=== PATIENT | male | born 1930 | race Caucasian/White ===

== ENCOUNTER 2016-11-21 16:38 | Inpatient (IN) | payer OTHER ==
--- NOTE | 2016-11-21 16:46 | EDPHY ---
H & P Time Seen by Provider: 11/21/16 16:43 HPI/ROS: CHIEF COMPLAINT: Weakness, dizzy HISTORY OF PRESENT ILLNESS: Patient is an 87-year-old male with a history of atrial fibrillation, CHF, anemia and AAA who presents emergency department with weakness and dizziness. Patient states he woke this morning feeling more fatigued than normal. He reports feeling unsteady. He needed to use his 's walker to get around the house. He normally doesn't need any aid to ambulate. Patient denies focal weakness or numbness. No headache. Patient has no chest pain. No shortness of breath. Mild nonproductive cough. No nausea vomiting. No abdominal pain. Per report the patient may have taking his 's medications last evening instead of his. REVIEW OF SYSTEMS: My complete review of systems is negative except as mentioned in the HPI. Past Medical/Surgical History: Includes atrial fibrillation, CHF, AAA, anemia Social history: Patient does not smoke use alcohol. The patient is . Physical Exam: Vitals noted GENERAL: Well-appearing, in no acute distress, alert. HEENT: Eyes normal to inspection, normal pharynx, no signs of dehydration. NECK: No thyromegaly, no lymphadenopathy, supple. RESPIRATORY: Clear to auscultation bilaterally, no rales, rhonchi or wheezing. CVS: Regular rate and rhythm, no rubs, murmurs, or gallops. ABDOMEN: Soft, nontender, nondistended, no organomegaly. BACK: Normal to inspection, no CVA tenderness. SKIN: Normal color, no rash, warm, dry. No pallor. Multiple skin plaque lesions on his face and back. EXTREMITIES: No pedal edema, no calf tenderness, no Homans sign or cords, no joint swelling. NEURO/PSYCH: Higher functions: Alert and Oriented x3. Normal speech and cognition. Normal mood and affect. Cranial nerves: Normal as tested. Cerebellar: Normal as tested. Good finger to nose, good [id number], normal gait. Peripheral exam: Normal motor exam. Normal sensation. Normal reflexes. Constitutional: Initial Vital Signs Temperature (C) 36.4 C 11/21/16 16:40 Heart Rate 92 11/21/16 16:40 Respiratory Rate 16 11/21/16 16:40 Blood Pressure 117/83 H 11/21/16 16:40 O2 Sat (%) 96 11/21/16 16:40 O2 Delivery Mode Room Air Allergies/Adverse Reactions: amoxicillin trihydrate [From Augmentin] Allergy (Verified 09/28/15 05:37) potassium clavulanate [From Augmentin] Allergy (Verified 09/28/15 05:37) Home Medications: Medication Instructions Recorded Acetamn/Diphenhydramine 500/25 1 each PO HS PRN 04/09/12 [Tylenol PM (RX)] Aspirin EC [Aspirin EC 81 mg (OTC)] 81 mg PO DAILY 04/09/12 Calcium Carb W/Vit D [Calcium Carb 500 mg PO BID 04/09/12 W/Vit D 500/200 (OTC)] Carvedilol [Coreg] 25 mg PO BIDMEAL 04/09/12 Furosemide [Lasix 40 MG (RX)] 20 mg PO DAILY 04/09/12 Levothyroxine [Synthroid 100 mcg 100 mcg PO DAILY06 04/09/12 (RX)] Losartan Potassium [Cozaar] 100 mg PO DAILY 04/09/12 Omeprazole [Prilosec 20 mg] 20 mg PO DAILY@0730 04/09/12 Sennosides/Docusate Sodium 1 each PO DAILY 04/09/12 [Senokot-S Tablet] Spironolactone [Aldactone 25 MG 25 mg PO DAILY 04/09/12 (RX)] Tamsulosin HCl [Flomax 0.4 MG (RX)] 0.4 mg PO DAILY8 04/09/12 Warfarin Sodium [Coumadin 2.5MG 5 mg PO DAILY16 04/09/12 (RX)] Famotidine [Pepcid 20 MG (OTC)] 20 mg PO DAILY #10 tab 07/30/12 Ondansetron Odt [Zofran Odt] 4 mg PO Q4PRN PRN #8 tab 01/16/14 Carvedilol [Coreg] 12.5 mg PO BIDMEAL 11/21/16 Medical Decision Making - Diagnostics Imaging Results: Imaging Impressions Chest X-Ray 11/21/16 16:47 Impression: Suspect acute CHF with pulmonary edema. Head CT 11/21/16 16:47 Impression: 1. Historically remote, small left parietal cortical infarction. 2. Diffuse cortical atrophy. I telephoned results to Dr. Polly Grove at 1715 hours. ED Course/Re-evaluation: In the emergency department I met EMS on arrival. I took report from the master control technician. The patient's glucose was normal. Laboratory studies, head CT, EKG and chest x-ray were ordered. Patient was given aspirin 324 mg orally. I am aware that he has a history of a AAA. Patient was given meclizine 25 mg orally for his dizziness. I reviewed the patient's 's medications that the patient potentially took: Gabapentin, valsartan, donepezil, atorvastin, prilosec, calcitonin EKG: Atrial fibrillation with V paced complexes. I reviewed the patient's laboratory studies. His CBC was unremarkable. Normal white count and hematocrit. Patient's chemistry panel was notable for an elevated creatinine of 2.0. I compared this with previous values which were also elevated and similar. Patient's BNP is 6000. He has had elevated BNP in the past. Chest x-ray: Please refer the dictated report. The patient has cardiomegaly with findings consistent with CHF. I discussed the results with the patient. I answered all of his questions. I discussed the case with Dr. Orlando. He recommended giving Lasix 80 mg IV. Differential Diagnosis: My differential includes but is not limited to ACS, acute MT, dysrhythmia, electrolyte abnormality, sugar abnormality, dissection, aneurysm, CVA, closed- head injury, medication error - Data Points Laboratory Results: Laboratory Results 11/21/16 17:07 11/21/16 17:07 11/21/16 11/21/16 11/21/16 17:07 17:07 17:07 WBC 8.63 10^3/uL 10^3/uL (3.80-9.50) RBC 4.86 10^6/uL 10^6/uL (4.40-6.38) Hgb 14.0 g/dL g/dL (13.7-17.5) Hct 43.7 % % (40.0-51.0) MCV 89.9 fL fL (81.5-99.8) MCH 28.8 pg pg (27.9-34.1) MCHC 32.0 g/dL L g/dL (32.4-36.7) RDW 15.4 % H % (11.5-15.2) Plt Count 241 10^3/uL 10^3/uL (150-400) MPV 10.3 fL fL (8.7-11.7) Neut % (Auto) 62.9 % % (39.3-74.2) Lymph % (Auto) 21.1 % % (15.0-45.0) Brule % (Auto) 10.7 % % (4.5-13.0) Eos % (Auto) 4.4 % % (0.6-7.6) Baso % (Auto) 0.6 % % (0.3-1.7) Nucleat RBC Rel Count 0.0 % % (0.0-0.2) Absolute Neuts (auto) 5.43 10^3/uL 10^3/uL (1.70-6.50) Absolute Lymphs (auto) 1.82 10^3/uL 10^3/uL (1.00-3.00) Absolute Monos (auto) 0.92 10^3/uL H 10^3/uL (0.30-0.80) Absolute Eos (auto) 0.38 10^3/uL 10^3/uL (0.03-0.40) Absolute Basos (auto) 0.05 10^3/uL 10^3/uL (0.02-0.10) Absolute Nucleated RBC 0.00 10^3/uL 10^3/uL (0-0.01) Immature Gran % 0.3 % % (0.0-1.1) Immature Gran # 0.03 10^3/uL 10^3/uL (0.00-0.10) PT 28.4 SEC H SEC (12.0-15.0) INR 2.63 H (0.83-1.16) APTT 43.4 SEC H SEC (23.0-38.0) Sodium 139 mEq/L mEq/L (134-144) Potassium 4.7 mEq/L mEq/L (3.5-5.2) Chloride 105 mEq/L mEq/L (97-110) Carbon Dioxide 20 mEq/l L mEq/l (22-31) Anion Gap 14 mEq/L mEq/L (8-16) BUN 32 mg/dL H mg/dL (7-23) Creatinine 2.0 mg/dL H mg/dL (0.7-1.3) Estimated GFR 32 Glucose 95 mg/dL mg/dL (70-100) Calcium 9.5 mg/dL mg/dL (8.5-10.4) Total Bilirubin 1.0 mg/dL mg/dL (0.1-1.4) Conjugated Bilirubin 0.5 mg/dL mg/dL (0.0-0.5) Unconjugated Bilirubin 0.5 mg/dL mg/dL (0.0-1.1) AST 20 IU/L IU/L (17-59) ALT 26 IU/L IU/L (21-72) Alkaline Phosphatase 107 IU/L IU/L (38-126) Troponin I 0.019 ng/mL ng/mL (0-0.034) NT-Pro-B Natriuret Pep 6110 pg/mL H pg/mL (0-450) Total Protein 7.3 g/dL g/dL (6.3-8.2) Albumin 3.9 g/dL g/dL (3.5-5.0) Medications Given: Discontinued Medications Aspirin (Aspirin) 324 mg PO EDNOW ONE Stop: 11/21/16 16:49 Last Admin: 11/21/16 17:12 Dose: 324 mg Meclizine HCl (Meclizine Hcl) 25 mg PO EDNOW ONE Stop: 11/21/16 16:49 Last Admin: 11/21/16 17:12 Dose: 25 mg Departure - Departure Disposition: [facility] Inpatient Acute Clinical Impression: CHF (congestive heart failure) Qualifiers: Congestive heart failure type: unspecified congestive heart failure type Congestive heart failure chronicity: acute Qualified Code(s): I50.9 - Heart failure, unspecified Condition: Good Referrals: MD MANDA [Other] - As per Instructions
[2016-11-21] MEDS ORDERED: ASPIRIN 81 MG CHEWABLE TAB PO ONE (16:48)
[2016-11-21] MEDS ORDERED: MECLIZINE HCL 25 MG TAB PO ONE (16:48)
--- NOTE | 2016-11-21 16:50 | CPEKG ---
Heart Rate: 69 RR Interval: 870 QRSD Interval: 192 QT Interval: 484 QTC Interval: 519 QRS Mendon: 167 T Wave [place]on: -3 EKG Severity - ABNORMAL ECG - EKG Impression: AFIB/FLUT AND V-PACED COMPLEXES EKG Impression: NONSPECIFIC INTRAVENTRICULAR CONDUCTION DELAY Electronically Signed By: Polly Grove 21-Nov-2016 23:17:21
[2016-11-21 17:11] LABS: % IMMATURE GRANULYOCYTES 0.3 % (0.0-1.1); ABSOLUTE IMMATURE GRANULOCYTES 0.03 10^3/uL (0.00-0.10); ADD DIFF? NO; ADD MORPH? NO; ADD SCAN? NO; ATYPICAL LYMPHOCYTE FLAG 0 (0-99); FRAGMENT RBC FLAG 0 (0-99); HEMATOCRIT 43.7 % (40.0-51.0); LEFT SHIFT FLG 0 (0-99); LIPEMIA HEMOLYSIS FLAG 80 (0-99); MEAN CELL HEMOGLOBIN 28.8 pg (27.9-34.1); MEAN CELL VOLUME 89.9 fL (81.5-99.8); MEAN PLATELET VOLUME 10.3 fL (8.7-11.7); PLATELET CLUMPS FLAG 10 (0-99); PLATELET COUNT 241 10^3/uL (150-400); RED BLOOD CELL COUNT 4.86 10^6/uL (4.40-6.38); RED CELL DISTRIBUTION WIDTH 15.4 % (11.5-15.2)
[2016-11-21 17:22] LABS: APTT 43.4 SEC (23.0-38.0); INR 2.63 (0.83-1.16); PROTIME(PATIENT) 28.4 SEC (12.0-15.0)
[2016-11-21 17:23] LABS: ALANINE AMINOTRANSFERASE 26 IU/L (21-72); ALBUMIN 3.9 g/dL (3.5-5.0); ALKALINE PHOSPHATASE 107 IU/L (38-126); ANION GAP 14 mEq/L (8-16); ASPARTATE AMINOTRANSFERASE 20 IU/L (17-59); BILIRUBIN-CONJUGATED 0.5 mg/dL (0.0-0.5); BILIRUBIN-UNCONJUGATED 0.5 mg/dL (0.0-1.1); CALCIUM 9.5 mg/dL (8.5-10.4); CARBON DIOXIDE 20 mEq/l (22-31); CHLORIDE 105 mEq/L (97-110); GLOMERULAR FILTRATION RATE 32; GLUCOSE 95 mg/dL (70-100); POTASSIUM 4.7 mEq/L (3.5-5.2); SODIUM 139 mEq/L (134-144); TOTAL PROTEIN 7.3 g/dL (6.3-8.2)
[2016-11-21 17:35] LABS: TROPONIN I 0.019 ng/mL (0-0.034)
[2016-11-21] MEDS ORDERED: FUROSEMIDE 40 MG/4 ML VIAL IVP ONE (19:32)
[2016-11-21] MEDS ORDERED: ONDANSETRON 4 MG/2 ML VIAL IVP PRN (19:51)
[2016-11-21] MEDS ORDERED: ONDANSETRON DISINTEGRATING 4 MG TAB PO PRN (19:51)
[2016-11-21] MEDS ORDERED: ACETAMINOPHEN 325 MG TAB PO PRN (19:51)
[2016-11-21] MEDS ORDERED: ACETAMN/DIPHENHYDRAMINE 500/25MG TAB PO PRN (19:54)
[2016-11-21] MEDS ORDERED: CALCIUM CARB W/VIT D 500 MG TAB PO SCH (21:00)
--- NOTE | 2016-11-21 21:51 | PDGENHP ---
History and Physical - Chief Complaint Acute fatigue - History of Present Illness primary care provider: [facility] Internal Medicine Primary risk control specialist: Dr. Delcid at [facility] HPI: 86-year-old male presents with acute fatigue characterized as generalized weakness with associated unsteady gait and onset of symptoms on the morning of presentation. Duration has been persistent thereafter. The patient reports that his unsteady gait was somewhat exacerbated by attempting to walk breakfast , somewhat alleviated by using his 's walker to steady himself. He reports that his urine output is normal compared to his baseline, twice today already, and that his oral intake of solids and liquids has been at his baseline. He denies any nausea vomiting or diarrhea. He denies any fevers chills or cough. He does report some shortness of breath which is exertional but seems to be alleviated by stopping and taking deep breaths. He denies any orthopnea. He has otherwise been taking all of his home medications and denies any chest pain. Patient accidentally took his 's home medications last night the patient is unable to tell me what they are right now. History Information - Allergies/Home Medication List Allergies/Adverse Reactions: amoxicillin trihydrate [From Augmentin] Allergy (Verified 09/28/15 05:37) potassium clavulanate [From Augmentin] Allergy (Verified 09/28/15 05:37) Home Medications: Omeprazole [Prilosec 20 mg] 20 mg PO DAILY06 04/09/12 [Last Taken 04/09/12] Tamsulosin HCl [Flomax 0.4 MG (RX)] 0.4 mg PO HS 04/09/12 [Last Taken 04/09/12] Warfarin Sodium [Coumadin 2.5MG (RX)] 2.5 mg PO DAILY16 04/09/12 [Last Taken 09/04] Calcitriol [Calcitriol (*)] 0.25 mcg PO DAILY 11/21/16 [Last Taken 11/21/16] Carvedilol [Coreg] 6.25 mg PO BIDMEAL 11/21/16 [Last Taken Unknown] Finasteride [Proscar 5 MG (*)] 5 mg PO DAILY 11/21/16 [Last Taken 11/21/16] Furosemide [Lasix 20 MG (*)] 20 mg PO DAILY 11/21/16 [Last Taken Unknown] Levothyroxine [Synthroid 88 mcg (*)] 88 mcg PO DAILY06 11/21/16 [Last Taken 08/04] Losartan Potassium [Cozaar 25 mg (*)] 12.5 mg PO DAILY 11/21/16 [Last Taken 08/04] Sodium Bicarbonate [Na Bicarb 650 MG (RX)] 1,300 mg PO DAILY 11/21/16 [Last Taken Unknown] I have personally reviewed and updated: family history, medical history, social history, surgical history - Past Medical History CHF ( Nonischemic cardiomyopathy with an ejection fraction of 10-15%), hypertension Additional medical history: chronic kidney disease stage 3 with baseline creatinine 1.7-1.9. 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 Hypothyroidism. COPD. Anemia of chronic kidney disease. Osteopenia. Thoracic aortic aneurysm. Nonsustained ventricular tachycardia. BPH. Gastric MALT - Surgical History Reports: appendectomy Additional surgical history: Parathyroidectomy. Thyroid lobectomy - Family History Additional family history: no recent sick family contacts - Social History Smoking Status: Former smoker Alcohol Use: Rarely Drug Use: None Additional social history: patient is reside in the [facility] Review of Systems ROS: 10pt was reviewed & negative except for what was stated in HPI & below Constitutional: Reports: weakness, other (fatigue) Physical Exam Temp Pulse Resp BP Pulse Ox 36.5 C 78 21 H 134/85 H 96 11/21/16 21:14 11/21/16 21:14 11/21/16 21:14 11/21/16 21:14 11/21/16 21:14 O2 (L/minute) 2 Constitutional: no apparent distress, not in pain, chronically ill appearing, No uncomfortable Eyes: PERRL, anicteric sclera, EOMI Ears, Nose, Mouth, Throat: other (tacky mucous membranes) Cardiovascular: systolic murmur (II/ at sternum), edema (trace in ankles bilat ), No irregularly irregular, No tachycardia, No bradycardia Respiratory: reduced air movement (bilat bases), inspiratory crackles, No expiratory wheeze, No bronchial breath sounds Gastrointestinal: normoactive bowel sounds, soft, non-tender abdomen, no palpable masses Genitourinary: no bladder fullness, no bladder tenderness Skin: warm, normal color, no rashes or abrasions, no fluctuance, no induration, No mottled Neurologic: AAOx3, sensation intact bilaterally, No weakness (motor 5/5 bilat LE ) Psychiatric: interacting appropriately, not anxious, not encephalopathic, thought process linear, other (fatigued but arousable) Lab Data & Imaging Review 11/21/16 17:07 11/21/16 17:07 WBC 8.63 10^3/uL (3.80-9.50) 11/21/16 17:07 RBC 4.86 10^6/uL (4.40-6.38) 11/21/16 17:07 Hgb 14.0 g/dL (13.7-17.5) 11/21/16 17:07 Hct 43.7 % (40.0-51.0) 11/21/16 17:07 MCV 89.9 fL (81.5-99.8) 11/21/16 17:07 MCH 28.8 pg (27.9-34.1) 11/21/16 17:07 MCHC 32.0 g/dL (32.4-36.7) L 11/21/16 17:07 RDW 15.4 % (11.5-15.2) H 11/21/16 17:07 Plt Count 241 10^3/uL (150-400) 11/21/16 17:07 MPV 10.3 fL (8.7-11.7) 11/21/16 17:07 Neut % (Auto) 62.9 % (39.3-74.2) 11/21/16 17:07 Lymph % (Auto) 21.1 % (15.0-45.0) 11/21/16 17:07 Robeson % (Auto) 10.7 % (4.5-13.0) 11/21/16 17:07 Eos % (Auto) 4.4 % (0.6-7.6) 11/21/16 17:07 Baso % (Auto) 0.6 % (0.3-1.7) 11/21/16 17:07 Nucleat RBC Rel Count 0.0 % (0.0-0.2) 11/21/16 17:07 Absolute Neuts (auto) 5.43 10^3/uL (1.70-6.50) 11/21/16 17:07 Absolute Lymphs (auto) 1.82 10^3/uL (1.00-3.00) 11/21/16 17:07 Absolute Monos (auto) 0.92 10^3/uL (0.30-0.80) H 11/21/16 17:07 Absolute Eos (auto) 0.38 10^3/uL (0.03-0.40) 11/21/16 17:07 Absolute Basos (auto) 0.05 10^3/uL (0.02-0.10) 11/21/16 17:07 Absolute Nucleated RBC 0.00 10^3/uL (0-0.01) 11/21/16 17:07 Immature Gran % 0.3 % (0.0-1.1) 11/21/16 17:07 Immature Gran # 0.03 10^3/uL (0.00-0.10) 11/21/16 17:07 PT 28.4 SEC (12.0-15.0) H 11/21/16 17:07 INR 2.63 (0.83-1.16) H 11/21/16 17:07 APTT 43.4 SEC (23.0-38.0) H 11/21/16 17:07 Sodium 139 mEq/L (134-144) 11/21/16 17:07 Potassium 4.7 mEq/L (3.5-5.2) 11/21/16 17:07 Chloride 105 mEq/L (97-110) 11/21/16 17:07 Carbon Dioxide 20 mEq/l (22-31) L 11/21/16 17:07 Anion Gap 14 mEq/L (8-16) 11/21/16 17:07 BUN 32 mg/dL (7-23) H 11/21/16 17:07 Creatinine 2.0 mg/dL (0.7-1.3) H 11/21/16 17:07 Estimated GFR 32 11/21/16 17:07 Glucose 95 mg/dL (70-100) 11/21/16 17:07 Calcium 9.5 mg/dL (8.5-10.4) 11/21/16 17:07 Total Bilirubin 1.0 mg/dL (0.1-1.4) 11/21/16 17:07 Conjugated Bilirubin 0.5 mg/dL (0.0-0.5) 11/21/16 17:07 Unconjugated Bilirubin 0.5 mg/dL (0.0-1.1) 11/21/16 17:07 AST 20 IU/L (17-59) 11/21/16 17:07 ALT 26 IU/L (21-72) 11/21/16 17:07 Alkaline Phosphatase 107 IU/L (38-126) 11/21/16 17:07 Troponin I 0.019 ng/mL (0-0.034) 11/21/16 17:07 NT-Pro-B Natriuret Pep 6110 pg/mL (0-450) H 11/21/16 17:07 Total Protein 7.3 g/dL (6.3-8.2) 11/21/16 17:07 Albumin 3.9 g/dL (3.5-5.0) 11/21/16 17:07 Visualized and Interpreted Chest x-ray results: Yes Chest X-Ray results: other ( pulmonary edema, cardiomegaly) Visualized and Interpreted EKG results: Yes EKG Interpretation: Positive for: other ( pace) Assessment & Plan Assessment: 86-year-old male presents with acute fatigue secondary to suspected acute systolic CHF exacerbation Plan: 1. Suspected acute CHF exacerbation. New problem this provider, further workup indicated. Evidenced by pulmonary edema on chest x-ray, elevated BNP of 6000, symptomatic fatigue and shortness of breath. Reviewed outside records which demonstrated last known ejection fraction 10-15% history and physical by Dr. Ambreen Dubois from 04/09/2012 -although patient's weight is 5 kg less than 1 year ago, it is unclear what his current dry weight is and will request outside records from [facility] cardiology, Dr. Delcid's office -discussed with Dr. Grove, we agreed to give the patient 1 dose 80 IV Lasix in the emergency department, gauge urine output response, monitor serum creatinine level and daily weights closely -Lasix 40 mg IV twice daily ordered to start tomorrow morning, adjust depending on urine output and serum creatinine level -get echocardiogram to determine current ejection fraction -monitor on telemetry to ensure no tachyarrhythmias exacerbating his issue 2. Acute kidney injury on chronic kidney disease stage 3. most likely secondary to renal hypoperfusion in the setting of poor cardiac output in the setting of severe cardiomyopathy and suspected CHF exacerbation -as noted above, monitor urine output and renal function closely in the setting of IV diuretic trial -if patient's serum creatinine level is increasing tomorrow, would recommend giving back volume and potentially consulting with renal 3. Fatigue. Acute, new problem this provider, further workup indicated. Most likely etiology is CHF exacerbation as outlined above, but given his history of parathyroid adenoma as well as secondary hyperparathyroidism and his underlying renal dysfunction, would recommend getting full electrolyte panel and also assessing for other causes -patient took all of his 's home medications on the evening prior to presentation but is currently unclear what these medications are -would recommend the family bring the 's medications in tomorrow that we have a better understanding of what was actually ingested -until Dr. Grove that the 's medications including DIO-inhibitor as well as another antihypertensive, but the patient is not presently hypotensive 4. Hypertension. Chronic, holding some of patient's home medications while actively diuresing Diet. Cardiac Prophylaxis. High risk, currently on Coumadin Code. Full per patient, his son Kalen is his MD POA Disposition. Anticipated discharge uncertain this time, anticipated length stay is greater than 48 hours warranting inpatient admission status for acute suspected CHF exacerbation in the setting of high risk comorbid acute kidney injury on chronic kidney disease stage 3, high medical complexity patient. Dr. Grove has contacted [facility] today and asked them whether they would like to repatriate the patient, they have declined and are permitting us to admit him as an inpatient at this time.
[2016-11-21 22:41] LABS: COLOR PALE YELLOW; LEUKOCYTE ESTERASE,URINE 2+ (NEGATIVE); NITRITE,URINE NEGATIVE (NEGATIVE)
[2016-11-21] MEDS: TAMSULOSIN HCL 0.4 MG CAP PO SCH (22:45)
[2016-11-21 22:55] LABS: WBC,URINE 25-50 /hpf (0-3)
[2016-11-22 04:27] LABS: % IMMATURE GRANULYOCYTES 0.3 % (0.0-1.1); ABSOLUTE IMMATURE GRANULOCYTES 0.03 10^3/uL (0.00-0.10); ADD DIFF? NO; ADD MORPH? NO; ADD SCAN? NO; ATYPICAL LYMPHOCYTE FLAG 0 (0-99); FRAGMENT RBC FLAG 0 (0-99); HEMATOCRIT 43.7 % (40.0-51.0); HEMOGLOBIN 14.2 g/dL (13.7-17.5); LEFT SHIFT FLG 0 (0-99); LIPEMIA HEMOLYSIS FLAG 80 (0-99); MEAN CELL HEMOGLOBIN 28.9 pg (27.9-34.1); MEAN CELL HEMOGLOBIN CONCENTR. 32.5 g/dL (32.4-36.7); MEAN PLATELET VOLUME 9.7 fL (8.7-11.7); PLATELET CLUMPS FLAG 10 (0-99); PLATELET COUNT 186 10^3/uL (150-400); RED BLOOD CELL COUNT 4.91 10^6/uL (4.40-6.38); RED CELL DISTRIBUTION WIDTH 15.3 % (11.5-15.2)
[2016-11-22 04:40] LABS: INR 2.55 (0.83-1.16); PROTIME(PATIENT) 27.7 SEC (12.0-15.0)
[2016-11-22 05:06] LABS: ALANINE AMINOTRANSFERASE 27 IU/L (21-72); ALBUMIN 3.7 g/dL (3.5-5.0); ALKALINE PHOSPHATASE 105 IU/L (38-126); ANION GAP 13 mEq/L (8-16); ASPARTATE AMINOTRANSFERASE 22 IU/L (17-59); CALCIUM 9.5 mg/dL (8.5-10.4); CARBON DIOXIDE 20 mEq/l (22-31); CHLORIDE 106 mEq/L (97-110); CREATININE 1.7 mg/dL (0.7-1.3); GLOMERULAR FILTRATION RATE 38; GLUCOSE 99 mg/dL (70-100); MAGNESIUM 1.7 mg/dL (1.6-2.3); POTASSIUM 3.8 mEq/L (3.5-5.2); SODIUM 139 mEq/L (134-144); TOTAL PROTEIN 7.2 g/dL (6.3-8.2)
[2016-11-22 05:17] LABS: TROPONIN I 0.023 ng/mL (0-0.034)
[2016-11-22] MEDS: LEVOTHYROXINE 88 MCG TAB PO SCH (05:41)
[2016-11-22] MEDS ORDERED: LEVOTHYROXINE 100 MCG TAB PO SCH (06:00)
[2016-11-22] MEDS ORDERED: LEVOTHYROXINE 88 MCG TAB PO SCH (06:00)
[2016-11-22] MEDS ORDERED: NON-FORMULARY NEW DRUG (Omeprazole [Prilosec 20 Mg] 20 MG) PO SCH (07:30)
[2016-11-22] MEDS ORDERED: NON-FORMULARY NEW DRUG (Carvedilol [Coreg] 12.5 MG) PO SCH (08:00)
[2016-11-22] MEDS ORDERED: CARVEDILOL 6.25 MG TAB PO SCH (08:00)
[2016-11-22] MEDS ORDERED: SENNOSIDES/DOCUSATE SODIUM TAB PO SCH (09:00)
[2016-11-22] MEDS ORDERED: SPIRONOLACTONE 25 MG TAB PO SCH (09:00)
[2016-11-22] MEDS ORDERED: ASPIRIN EC 81 MG TAB PO SCH (09:00)
[2016-11-22] MEDS ORDERED: CHOLECALCIFEROL VIT D3 1,000 UNITS TAB PO SCH (09:00)
[2016-11-22] MEDS ORDERED: NON-FORMULARY NEW DRUG (Silodosin [Rapaflo] 8 MG) PO SCH (09:00)
[2016-11-22] MEDS: PANTOPRAZOLE SODIUM 40 MG TAB PO SCH (09:39)
[2016-11-22] MEDS: CALCITRIOL 0.25 MCG CAP PO SCH (09:40)
[2016-11-22] MEDS: CARVEDILOL 6.25 MG TAB PO SCH ×2 (09:40→18:09)
[2016-11-22] MEDS: FINASTERIDE 5 MG TAB PO SCH (09:40)
[2016-11-22] MEDS: SODIUM BICARBONATE 650 MG TAB PO SCH (09:41)
[2016-11-22] MEDS: FUROSEMIDE 40 MG/4 ML VIAL IVP SCH ×2 (09:41→15:15)
--- NOTE | 2016-11-22 13:38 | ECHO ---
[id number] + + [address] : : [place] [address] : : [phone] + + Adult Echocardiographic Report + ------+ :Name: AKILA PANIAGUA RStudy Date: 11/22/2016 10:46 AM : : Hospital Admission Number: [id number] Locatio n: 219: :: 1930 Gender: Male Height: 71 in : :Age: 86 yrs Race: WH Weight: 180 lb : :Reason For Study: Eval EF : : BSA: 2.0 meters 2 : :History: Pacer : + ------+ MMode/2D Measurements \T\ Calculations LVIDd: 7.1 cm EDV(Teich): 266.2 ml Ao root diam: 4.7 cm LA dimension: 5.4 cm Normal Measurement Values: + + :LVIDd (3.5-5.7cm) IVSd (0.6-1.1cm) LVPWd (0.6-1.1cm) Aortic Root (2.0-3.7cm)Left Atrium (1.5-4.0cm): :LV Vol(d) (76-115ml) LV Vol(s) (29-48ml) Ejec Fraction (50-65%)PV Glenn (0.6- 1.2m/s) TV Glenn (0.4-1.0m/s) : :MV E Glenn (0.8-1.0m/s)MV A Glenn (0.3-1.0m/s)LVOT Glenn (0.7-1.2m/s) Asc Ao Glenn ( 0.9-1.8m/s) : + + Doppler Measurements \T\ Calculations MV E max glenn: 64.5 cm/sec Ao V2 max: 96.4 cm/sec MV A max glenn: 22.5 cm/sec Ao max P.7 mmHg MV E/A: 2.9 Left Ventricle The left ventricle is severely dilated. There is normal left ventricular wall thickness. Left ventricular systolic function is severely reduced. EF estimate is 15%. Right Ventricle The right ventricle is normal in size and function. There is a pacemaker lead in the right ventricle. Atria The left atrium is mildly dilated. Right atrial size is normal. The interatrial septum is intact with no evidence for an atrial septal defect. Mitral Valve Calcified mitral apparatus. There is no evidence of mitral valve prolapse. There is no mitral valve stenosis. There is mild mitral regurgitation. Tricuspid Valve Normal tricuspid valve. There is mild tricuspid regurgitation. Aortic Valve The aortic valve is trileaflet. The aortic valve opens well. Mild aortic calcification. There is no aortic stenosis. Trace aortic regurgitation. Pulmonic Valve The pulmonic valve is normal in structure and function. Mild pulmonic valvular regurgitation. Great Vessels The aortic root is normal size. Pericardium/Pleural There is no pericardial effusion. Conclusion A complete two-dimensional transthoracic echocardiogram was performed (2D, M-mode, Doppler and color flow Doppler). The left ventricle is severely dilated. Left ventricular systolic function is severely reduced. EF estimate is 15%. There is a pacemaker lead in the right ventricle. The left atrium is mildly dilated. Calcified mitral apparatus. There is mild mitral regurgitation. There is mild tricuspid regurgitation. Mild aortic calcification. Trace aortic regurgitation. Mild pulmonic valvular regurgitation. Final Reading Physician: Holden West MD electronically signed on 11/22/2016 01:36 PM Ordering Physician: Theron Orlando Performed By: Trina Coleman RDCS
--- NOTE | 2016-11-22 15:06 | HOSPPROG ---
Hospitalist Progress Note Assessment/Plan: 86-year-old with a history of nonischemic cardiomyopathy followed at [facility]. He has had a pacemaker placed for sick sinus syndrome. His last echo at [facility] was done in October of 2015 which showed an EF of 30-40%. He has a Biotronik pacemaker. Mr. Cadena was admitted with acute onset of weakness and shortness of breath and evidence of congestive heart failure on his chest x-ray. # acute systolic congestive heart failure. Patient has a nonischemic cardiomyopathy, last known EF was 30-40% currently 15% by echo. He is feeling much better today however it is concerning about the mid significant drop in EF * Continue diuresis * Pacemaker interrogation with Biotronik * Cardiology consult in the morning question consider repeat limited echo after diuresis. # atrial fibrillation. Currently anticoagulated with Coumadin and rate controlled. # history of hypertension, blood pressure currently low likely secondary to his congestive heart failure. Will follow closely # Chronic Kidney disease. Creatinine 1.6 last month. Will continue to follow. # BPH: on finasteride. # Hypothyroidism Subjective: Patient new to me, chart reviewed. Discussed patient with [facility] physician. Patient feels much better today although unclear why he had sudden onset of heart failure with significant decreased EF. Still fatigued and short of breath but improved Objective: Vital Signs Temp Pulse Resp BP Pulse Ox 36.4 C 75 15 82/57 L 95 11/22/16 14:46 11/22/16 14:46 11/22/16 14:46 11/22/16 14:46 11/22/16 14:46 Laboratory Results 11/22/16 04:13 11/22/16 04:13 11/21/16 11/22/16 11/23/16 05:59 05:59 05:59 Intake Total 200 375 Output Total 2350 1000 Balance -2150 -625 PT 27.7 SEC (12.0-15.0) H 11/22/16 04:13 INR 2.55 (0.83-1.16) H 11/22/16 04:13 - Physical Exam Constitutional: no apparent distress, appears nourished, not in pain Eyes: PERRL, EOMI Ears, Nose, Mouth, Throat: moist mucous membranes, ears appear normal Cardiovascular: regular rate and rhythym, systolic murmur, edema (Trace) Respiratory: no respiratory distress, reduced air movement, inspiratory crackles (Basis) Gastrointestinal: normoactive bowel sounds, soft, non-tender abdomen Genitourinary: no bladder fullness Skin: warm Musculoskeletal: no joint effusions Neurologic: AAOx3, No facial droop Psychiatric: interacting appropriately, not anxious ICD10 Worksheet Patient Problems: Problems Problem Status Onset CHF (congestive heart failure) Acute
[2016-11-22] MEDS: WARFARIN SODIUM 2.5 MG TAB PO SCH (15:13)
[2016-11-22] MEDS ORDERED: FUROSEMIDE 40 MG/4 ML VIAL IVP SCH (15:18)
[2016-11-22] MEDS: TAMSULOSIN HCL 0.4 MG CAP PO SCH (20:29)
[2016-11-23] MEDS: LEVOTHYROXINE 88 MCG TAB PO SCH (05:59)
[2016-11-23 06:33] LABS: INR 2.22 (0.83-1.16); PROTIME(PATIENT) 24.8 SEC (12.0-15.0)
[2016-11-23 06:37] LABS: ANION GAP 8 mEq/L (8-16); CALCIUM 9.3 mg/dL (8.5-10.4); CARBON DIOXIDE 22 mEq/l (22-31); CHLORIDE 104 mEq/L (97-110); CREATININE 1.9 mg/dL (0.7-1.3); GLOMERULAR FILTRATION RATE 34; GLUCOSE 108 mg/dL (70-100); MAGNESIUM 1.9 mg/dL (1.6-2.3); POTASSIUM 3.8 mEq/L (3.5-5.2); SODIUM 134 mEq/L (134-144)
[2016-11-23] MEDS: CARVEDILOL 6.25 MG TAB PO SCH ×2 (08:29→18:07)
[2016-11-23] MEDS: PANTOPRAZOLE SODIUM 40 MG TAB PO SCH (08:29)
[2016-11-23] MEDS: SODIUM BICARBONATE 650 MG TAB PO SCH (09:45)
[2016-11-23] MEDS: CALCITRIOL 0.25 MCG CAP PO SCH (09:45)
[2016-11-23] MEDS: FINASTERIDE 5 MG TAB PO SCH (09:45)
[2016-11-23] MEDS: LOSARTAN POTASSIUM 25 MG TAB PO SCH (09:59)
[2016-11-23 11:23] LABS: COLOR YELLOW; LEUKOCYTE ESTERASE,URINE 3+ (NEGATIVE); NITRITE,URINE NEGATIVE (NEGATIVE)
[2016-11-23 11:29] LABS: BACTERIA 1+ /hpf (NONE SEEN); MUCUS TRACE /lpf (NONE-1+); RBC,URINE 15-25 /hpf (0-3); WBC,URINE 50-182 /hpf (0-3)
--- NOTE | 2016-11-23 12:59 | HOSPPROG ---
Hospitalist Progress Note Assessment/Plan: 86-year-old with a history of nonischemic cardiomyopathy followed at [facility]. He has had a pacemaker placed for sick sinus syndrome. His last echo at [facility] was done in October of 2015 which showed an EF of 30-40%. He has a Biotronik pacemaker. Mr. Cadena was admitted with acute onset of weakness and shortness of breath and evidence of congestive heart failure on his chest x-ray. # acute systolic congestive heart failure. Patient has a nonischemic cardiomyopathy, last known EF was 30-40% currently 15% by echo. He is feeling much better today however it is concerning about the mid significant drop in EF * Continue diuresis * Pacemaker interrogation with Educreationsronik revealed aflutter since , * Cardiology consult in the morning question consider repeat limited echo after diuresis. # atrial fibrillation. Currently anticoagulated with Coumadin and rate controlled. # history of hypertension, blood pressure currently low likely secondary to his congestive heart failure. Will follow closely # Chronic Kidney disease. Creatinine 1.6 last month. Will continue to follow. # BPH: on finasteride. # Hypothyroidism, on synthroid. normal TSH Subjective: Feels better today, less short of breath Objective: Vital Signs Temp Pulse Resp BP Pulse Ox 36.3 C 74 17 103/65 91 L 11/23/16 12:00 11/23/16 12:00 11/23/16 12:00 11/23/16 12:00 11/23/16 12:00 Laboratory Results 11/22/16 04:13 11/23/16 06:00 11/22/16 11/23/16 11/24/16 05:59 05:59 05:59 Intake Total 200 1125 Output Total 2350 1750 100 Balance -2150 -625 -100 PT 24.8 SEC (12.0-15.0) H 11/23/16 06:00 INR 2.22 (0.83-1.16) H 11/23/16 06:00 - Physical Exam Constitutional: no apparent distress, appears nourished Eyes: PERRL, EOMI Ears, Nose, Mouth, Throat: moist mucous membranes Cardiovascular: regular rate and rhythym Respiratory: no respiratory distress, reduced air movement, inspiratory crackles (Face) Gastrointestinal: normoactive bowel sounds Genitourinary: other (Mild urinary retention) Skin: warm Musculoskeletal: no joint effusions, generalized weakness Neurologic: AAOx3 Psychiatric: interacting appropriately ICD10 Worksheet Patient Problems: Problems Problem Status Onset CHF (congestive heart failure) Acute
--- NOTE | 2016-11-23 14:08 | PDCARCONS ---
Cardiology Consult Reason for Consult: Heart failure exacerbation Chief Complaint: No complaints today, but at the time of admission, the patient had weakness and fatigue with altered vision Requesting Physician: Hospitalists History of Present Illness: Patient is an 86 y/o male, followed primarily by [facility] (Dr. Randy Delcid), with history of non ischaemic CMP (EF in the past was 30-40%, but with this admission , noted to be suppressed to 15%), SSS s/p PPM, and atrial fibrillation (on coumadin with [id number] score of 4), who presented to [facility] after weakness and fatigue were noted at home. No appreciable weight gains have been noted at home. No complaints of chest pains or pressure. No PND or orthopnea have been noted. According to patient, no recent stress testing (we do not have access to [facility] notes). Patient has been diuresed with this admission (about 5 kg down from admission weight). Renal dysfunction is stable (Cr: 1.9) over the course of this hospital stay (2.0 - 1.7 - 1.9). Diuresis has been accomplished with 20 mg of IV lasix. Blood pressure was controlled (103/65 mm Hg). History Information - Allergies/Home Medication List Allergies/Adverse Reactions: amoxicillin trihydrate [From Augmentin] Allergy (Verified 09/28/15 05:37) potassium clavulanate [From Augmentin] Allergy (Verified 09/28/15 05:37) Home Medications: Omeprazole [Prilosec 20 mg] 20 mg PO DAILY06 04/09/12 [Last Taken 04/09/12] Tamsulosin HCl [Flomax 0.4 MG (RX)] 0.4 mg PO HS 04/09/12 [Last Taken 04/09/12] Warfarin Sodium [Coumadin 2.5MG (RX)] 2.5 mg PO DAILY16 04/09/12 [Last Taken 09/04] Calcitriol [Calcitriol (*)] 0.25 mcg PO DAILY 11/21/16 [Last Taken 11/21/16] Carvedilol [Coreg] 6.25 mg PO BIDMEAL 11/21/16 [Last Taken Unknown] Finasteride [Proscar 5 MG (*)] 5 mg PO DAILY 11/21/16 [Last Taken 11/21/16] Furosemide [Lasix 20 MG (*)] 20 mg PO DAILY 11/21/16 [Last Taken Unknown] Levothyroxine [Synthroid 88 mcg (*)] 88 mcg PO DAILY06 11/21/16 [Last Taken 08/04] Losartan Potassium [Cozaar 25 mg (*)] 12.5 mg PO DAILY 11/21/16 [Last Taken 08/04] Sodium Bicarbonate [Na Bicarb 650 MG (RX)] 1,300 mg PO DAILY 11/21/16 [Last Taken Unknown] I have personally reviewed and updated: family history, medical history, social history, surgical history - Past Medical History atrial fibrillation, CHF - Surgical History Reports: pacemaker/AICD - Family History Positive for: non-pertinent - Social History Smoking Status: Former smoker Alcohol Use: Rarely Drug Use: None Cardiac History - Cardiac History Past Cardiac History: PACEMAKER Cardiac Risk Factors: age > 65, male Timing/Duration: Days Severity: moderate Severity Scale: 5 Activities at Onset: activity Modifying Factors: improves with: rest Associated Symptoms: malaise, weakness ERNESTINE Risk Evaluation age greater or equal to 65: yes greater or equal to 3 CAD risk factors: yes known CAD(stenosis greater or eqaul to 50%): no ASA use in past 7 days: no severe angina(greater or equal to 2 episodes in 24hrs): no EKG ST changes greater or equal to 0.5mm: no positive cardiac marker: no Total Score: 2 ERNESTINE Score: 8.3% risk Physical Exam Temp Pulse Resp BP Pulse Ox 36.3 C 74 17 103/65 91 L 11/23/16 12:00 11/23/16 12:00 11/23/16 12:00 11/23/16 12:00 11/23/16 12:00 O2 (L/minute) 2 Constitutional: no apparent distress, appears nourished, not in pain Eyes: PERRL Ears, Nose, Mouth, Throat: moist mucous membranes Cardiovascular: regular rate and rhythym, No JVD, No edema Respiratory: no respiratory distress Gastrointestinal: normoactive bowel sounds Skin: warm Musculoskeletal: full muscle strength, no muscle tenderness Neurologic: AAOx3, sensation intact bilaterally, CN II-XII Intact Psychiatric: interacting appropriately, not anxious Lab and Imaging 11/22/16 04:13 11/23/16 06:00 WBC 8.95 10^3/uL (3.80-9.50) 11/22/16 04:13 RBC 4.91 10^6/uL (4.40-6.38) 11/22/16 04:13 Hgb 14.2 g/dL (13.7-17.5) 11/22/16 04:13 Hct 43.7 % (40.0-51.0) 11/22/16 04:13 MCV 89.0 fL (81.5-99.8) 11/22/16 04:13 MCH 28.9 pg (27.9-34.1) 11/22/16 04:13 MCHC 32.5 g/dL (32.4-36.7) 11/22/16 04:13 RDW 15.3 % (11.5-15.2) H 11/22/16 04:13 Plt Count 186 10^3/uL (150-400) D 11/22/16 04:13 MPV 9.7 fL (8.7-11.7) 11/22/16 04:13 Neut % (Auto) 64.5 % (39.3-74.2) 11/22/16 04:13 Lymph % (Auto) 20.6 % (15.0-45.0) 11/22/16 04:13 [place] % (Auto) 9.9 % (4.5-13.0) 11/22/16 04:13 Eos % (Auto) 4.0 % (0.6-7.6) 11/22/16 04:13 Baso % (Auto) 0.7 % (0.3-1.7) 11/22/16 04:13 Nucleat RBC Rel Count 0.0 % (0.0-0.2) 11/22/16 04:13 Absolute Neuts (auto) 5.77 10^3/uL (1.70-6.50) 11/22/16 04:13 Absolute Lymphs (auto) 1.84 10^3/uL (1.00-3.00) 11/22/16 04:13 Absolute Monos (auto) 0.89 10^3/uL (0.30-0.80) H 11/22/16 04:13 Absolute Eos (auto) 0.36 10^3/uL (0.03-0.40) 11/22/16 04:13 Absolute Basos (auto) 0.06 10^3/uL (0.02-0.10) 11/22/16 04:13 Absolute Nucleated RBC 0.00 10^3/uL (0-0.01) 11/22/16 04:13 Immature Gran % 0.3 % (0.0-1.1) 11/22/16 04:13 Immature Gran # 0.03 10^3/uL (0.00-0.10) 11/22/16 04:13 PT 24.8 SEC (12.0-15.0) H 11/23/16 06:00 INR 2.22 (0.83-1.16) H 11/23/16 06:00 APTT 43.4 SEC (23.0-38.0) H 11/21/16 17:07 Sodium 134 mEq/L (134-144) 11/23/16 06:00 Potassium 3.8 mEq/L (3.5-5.2) 11/23/16 06:00 Chloride 104 mEq/L (97-110) 11/23/16 06:00 Carbon Dioxide 22 mEq/l (22-31) 11/23/16 06:00 Anion Gap 8 mEq/L (8-16) 11/23/16 06:00 BUN 41 mg/dL (7-23) H 11/23/16 06:00 Creatinine 1.9 mg/dL (0.7-1.3) H 11/23/16 06:00 Estimated GFR 34 11/23/16 06:00 Glucose 108 mg/dL (70-100) H 11/23/16 06:00 Calcium 9.3 mg/dL (8.5-10.4) 11/23/16 06:00 Phosphorus 3.7 mg/dL (2.5-4.5) 11/22/16 04:13 Magnesium 1.9 mg/dL (1.6-2.3) 11/23/16 06:00 Total Bilirubin 1.0 mg/dL (0.1-1.4) 11/22/16 04:13 Conjugated Bilirubin 0.5 mg/dL (0.0-0.5) 11/21/16 17:07 Unconjugated Bilirubin 0.5 mg/dL (0.0-1.1) 11/21/16 17:07 AST 22 IU/L (17-59) 11/22/16 04:13 ALT 27 IU/L (21-72) 11/22/16 04:13 Alkaline Phosphatase 105 IU/L (38-126) 11/22/16 04:13 Creatine Kinase 61 IU/L (0-224) 11/22/16 04:13 Troponin I 0.023 ng/mL (0-0.034) 11/22/16 04:13 NT-Pro-B Natriuret Pep 3890 pg/mL (0-450) H 11/23/16 06:00 Total Protein 7.2 g/dL (6.3-8.2) 11/22/16 04:13 Albumin 3.7 g/dL (3.5-5.0) 11/22/16 04:13 TSH 1.410 uIU/mL (0.465-4.680) 11/22/16 04:13 Urine Color YELLOW 11/23/16 10:30 Urine Appearance MODERATELY TURBID 11/23/16 10:30 Urine pH 5.0 (5.0-7.5) 11/23/16 10:30 Ur Specific [employer] 1.013 (1.002-1.030) 11/23/16 10:30 Urine Protein 1+ (NEGATIVE) H 11/23/16 10:30 Urine Ketones NEGATIVE (NEGATIVE) 11/23/16 10:30 Urine Blood 1+ (NEGATIVE) H 11/23/16 10:30 Urine Nitrate NEGATIVE (NEGATIVE) 11/23/16 10:30 Urine Bilirubin NEGATIVE (NEGATIVE) 11/23/16 10:30 Urine Urobilinogen NEGATIVE EU (0.2-1.0) 11/23/16 10:30 Ur Leukocyte Esterase 3+ (NEGATIVE) H 11/23/16 10:30 Urine RBC 15-25 /hpf (0-3) H 11/23/16 10:30 Urine WBC 50-182 /hpf (0-3) H 11/23/16 10:30 Ur Epithelial Cells TRACE /lpf (NONE-1+) 11/23/16 10:30 Urine Bacteria 1+ /hpf (NONE SEEN) H 11/23/16 10:30 Urine Mucus TRACE /lpf (NONE-1+) 11/23/16 10:30 Ur Culture Indicated? INDICATED (NI) H 11/23/16 10:30 Urine Glucose NEGATIVE (NEGATIVE) 11/23/16 10:30 Visualized and Interpreted Chest x-ray results: Yes Chest X-ray Interpretation: effusion, other (CHF exacerbation likely) Visualized and Interpreted EKG results: Yes EKG additional interpertation: atrial fibrillation with ventricular pacing Telemetry: atrial flutter with intermittent ventricular pacing Echocardiogram: EF 15% with mild MR and TR. severe LV dilation A/P Assessment: Patient is an 86 y/o male with history of CHF (non ischaemic CMP by history) with SSS s/p PPM, and underlying atrial fib/flutter (on coumadin with [id number] score of 4), but no history (from chart review or patient report) of CAD or HLP who presented to [facility] with weakness and fatigue. Diuresis with about 5 kg of weight loss noted. Patient is feeling much better overall. Patient is followed by Dr. Randy Delcid (cardiology at [facility]). No recent stress testing, per patient, and we do not have access to [facility] records. Echocardiogram with reduction in LVEF noted (beyond that which was noted in the past with [facility]) to 15%. Plan: (1) Would maintain diuresis, but discontinue IV therapy in favor of PO (2) Continue therapy on coumadin for CVA prophylaxis (3) Coreg and Cozaar should continue for HTN and CMP history (4) Recommendations would be for patient to have MPI testing, but patient could be treated for the signs and symptoms noted, and discharged to follow up this week with the [facility]iology Team - this option was agreeable to the patient (5) Would maintain pacer interrogations as scheduled
[2016-11-23] MEDS: WARFARIN SODIUM 2.5 MG TAB PO SCH (15:54)
[2016-11-23] MEDS: TAMSULOSIN HCL 0.4 MG CAP PO SCH (19:45)
[2016-11-24 05:15] LABS: INR 2.22 (0.83-1.16); PROTIME(PATIENT) 24.8 SEC (12.0-15.0)
[2016-11-24] MEDS: LEVOTHYROXINE 88 MCG TAB PO SCH (05:43)
[2016-11-24] MEDS: PANTOPRAZOLE SODIUM 40 MG TAB PO SCH (06:33)
[2016-11-24] MEDS: LOSARTAN POTASSIUM 25 MG TAB PO SCH (08:40)
[2016-11-24] MEDS: FINASTERIDE 5 MG TAB PO SCH (08:41)
[2016-11-24] MEDS: CARVEDILOL 6.25 MG TAB PO SCH (08:41)
[2016-11-24] MEDS: CALCITRIOL 0.25 MCG CAP PO SCH (08:41)
[2016-11-24] MEDS: SODIUM BICARBONATE 650 MG TAB PO SCH (08:41)
[2016-11-24 10:26] LABS: ANION GAP 13 mEq/L (8-16); CALCIUM 9.5 mg/dL (8.5-10.4); CARBON DIOXIDE 17 mEq/l (22-31); CHLORIDE 105 mEq/L (97-110); CREATININE 1.7 mg/dL (0.7-1.3); GLOMERULAR FILTRATION RATE 38; GLUCOSE 100 mg/dL (70-100); POTASSIUM 4.1 mEq/L (3.5-5.2); SODIUM 135 mEq/L (134-144)
--- NOTE | 2016-11-24 11:08 | HOSPPROG ---
Hospitalist Progress Note Assessment/Plan: 86-year-old with a history of nonischemic cardiomyopathy followed at [facility]. He has had a pacemaker placed for sick sinus syndrome. His last echo at [facility] was done in October of 2015 which showed an EF of 30-40%. He has a Biotronik pacemaker. Mr. Cadena was admitted with acute onset of weakness and shortness of breath and evidence of congestive heart failure on his chest x-ray. # acute systolic congestive heart failure. Patient has a nonischemic cardiomyopathy, last known EF was 30-40% currently 15% by echo. He is feeling much better today however it is concerning about the mid significant drop in EF. discussed with Cardiology who did relay information to his primary ripening room attendant at [facility], Dr. Michael Delcid. * patient much improved will convert back to his usual medications * Pacemaker interrogation with Biotronik revealed aflutter since September 16, * Cardiology consult in the morning question consider repeat limited echo after diuresis. # atrial fibrillation. Currently anticoagulated with Coumadin and rate controlled. # urinary retention with a history of BPH. Patient retaining 300-500 mls. Evidence of UTI with pyuria on urinalysis. Given his urinary retention will treat. * Ceftriaxone 1 g now and can cell changer to oral medication at discharge # history of hypertension, blood pressure currently low likely secondary to his congestive heart failure. Will follow closely # Chronic Kidney disease. Creatinine 1.6 last month. Will continue to follow. stable creatinine today # BPH: on finasteride. # Hypothyroidism, on synthroid. normal TSH Subjective: patient feeling pretty good, still having some evidence of urinary retention Objective: Vital Signs Temp Pulse Resp BP Pulse Ox 36.5 C 69 18 139/64 H 95 11/24/16 07:20 11/24/16 07:20 11/24/16 07:20 11/24/16 07:20 11/24/16 07:20 Laboratory Results 11/22/16 04:13 11/24/16 04:42 11/23/16 11/24/16 11/25/16 05:59 05:59 05:59 Intake Total 1125 1320 650 Output Total 1750 400 Balance -625 920 650 PT 24.8 SEC (12.0-15.0) H 11/24/16 04:42 INR 2.22 (0.83-1.16) H 11/24/16 04:42 - Physical Exam Constitutional: no apparent distress, chronically ill appearing Eyes: PERRL, EOMI Ears, Nose, Mouth, Throat: moist mucous membranes Cardiovascular: regular rate and rhythym, systolic murmur Respiratory: no respiratory distress, reduced air movement Gastrointestinal: normoactive bowel sounds, soft, non-tender abdomen Skin: warm, normal color Musculoskeletal: generalized weakness Neurologic: AAOx3 Psychiatric: interacting appropriately, not anxious ICD10 Worksheet Patient Problems: Problems Problem Status Onset CHF (congestive heart failure) Acute
[2016-11-24] MEDS ORDERED: FUROSEMIDE 20 MG TAB PO SCH (11:30)
--- NOTE | 2016-11-24 14:03 | GDS ---
[f rep st] DISCHARGE SUMMARY DIAGNOSES: 1. Acute on chronic systolic heart failure. Ejection fraction currently 15% by echocardiogram. 2. Atrial fibrillation flutter noted on pacemaker interrogation since September 16. 3. Urinary retention with pyuria treated for urinary tract infection. 4. Hypertension. 5. Chronic kidney disease. 6. Hypothyroidism. Normal thyroid-stimulating hormone. PROCEDURES DONE: 1. Pacemaker interrogation. The patient in atrial fibrillation flutter since September 16. Echocardio gram: Left ventricular systolic function reduced to 15%. 2. Head CT. CONSULTATIONS: Cardiology, Dr. Theron Crowley. HOSPITAL COURSE: The patient is an 86-year-old, who presented with acute fatigue and generalized we akness. He said he had woken up with some shortness of breath, acute weakness on the day of admissi on and came in for further evaluation and treatment. On admission to the emergency department, ches t x-ray revealed pulmonary edema, elevated BNP, and pulmonary edema noted on chest x-ray. He was ad mitted to telemetry, ruled out for acute MA. The above procedures were done, and he was found to be in acute systolic heart failure. I did contact [facility] as he had a notable decrease in his EF. His last echo was done about a year ago and had an EF of 30% to 40% at that time. He improved dramatically with IV diuresis to a point where he was feeling back to baseline. He did have urinary retention throughout his stay and has had problems with that in the past. He is curren tly on Flomax and Proscar to treat that. Urinalysis was checked that showed pyuria, and he was aaron elizabeth for a presumed urinary tract infection. Cultures are pending at the time of dictation. CONDITION ON DISCHARGE: Good. PHYSICAL EXAMINATION: VITAL SIGNS: He is afebrile. Heart rate 78, blood pressure 134/85. He is 9 5% on room air. GENERAL APPEARANCE: He is alert and oriented. HEART: Regular. LUNGS: Clear. Di minished at the bases. EXTREMITIES: He has trace edema bilateral lower extremities. DISCHARGE MEDICATIONS: He will resume his home medicines. He needs to follow up with his primary c ardiologist this week, Dr. Michael Delcid. Dr. Crowley did contact Dr. Delcid and give him an update. He does have what looks like ongoing atrial flutter which may be contributing to his diminished eje ction fraction. Follow up with his primary care provider, Dr. Ramirez at the [facility] . He continues to have urinary retention, although his postvoid residual has been less than 400, an d he is being treated for a presumed urinary tract infection, his only symptom being worsening urina ry retention. Total time spent with patient on day of discharge and coordination of care is 35 minutes. /[id number]/MODL
--- NOTE | 2016-11-24 16:04 | PDIAF ---
- Diagnosis Diagnosis: chf, uti, bph Code Status: Full Code - Medication Management Discharge Medications: Medications to Continue on Transfer Omeprazole [Prilosec 20 mg] 20 mg PO DAILY06 04/09/12 [Last Taken 04/09/12] Tamsulosin HCl [Flomax 0.4 MG (*)] 0.4 mg PO HS 04/09/12 [Last Taken 04/09/12] Warfarin Sodium [Coumadin 2.5MG (*)] 2.5 mg PO DAILY16 04/09/12 [Last Taken 09/04] Calcitriol [Calcitriol (*)] 0.25 mcg PO DAILY 11/21/16 [Last Taken 11/21/16] Carvedilol [Coreg] 6.25 mg PO BIDMEAL 11/21/16 [Last Taken Unknown] Finasteride [Proscar 5 MG (*)] 5 mg PO DAILY 11/21/16 [Last Taken 11/21/16] Furosemide [Lasix 20 MG (*)] 20 mg PO DAILY 11/21/16 [Last Taken Unknown] Levothyroxine [Synthroid 88 mcg (*)] 88 mcg PO DAILY06 11/21/16 [Last Taken 08/04] Losartan Potassium [Cozaar 25 mg (*)] 12.5 mg PO DAILY 11/21/16 [Last Taken 08/04] Sodium Bicarbonate [Na Bicarb] 1,300 mg PO DAILY 11/21/16 [Last Taken Unknown] Cephalexin 500 mg PO TID #21 capsule 11/24/16 [Last Taken Unknown] Discharge Medications: Refer to the Discharge Home Medication list for PRN reason. - Orders Services needed: Home Care, Registered Nurse, Physical Therapy Home Care Face to Face: I certify that this patient was under my care and that I had the required [id number] encounter meeting the encounter requirements on the discharge day. My findings support the fact that the patient is homebound as defined in CMS Chapter 7 Medicare Benefits Manual 30.1.1, The condition of the patient is such that there exists a normal inability to leave home and consequently, leaving home would require a considerable and taxing effort. Diet Recommendation: cardiac -low fat low salt Diet Texture: Regular Texture Diet - Follow Up Care Current Providers and Referrals: MD MANDA [Other] - As per Instructions
[2016-11-24] MEDS: WARFARIN SODIUM 2.5 MG TAB PO SCH (16:56)
[2016-11-24 18:03] VITALS: BP 128/76; PULSE 68; RESP 15; TEMP 97.7; O2SAT 94
== END 2016-11-24 17:34 | disposition home or self-care (01) | DRG 291 ==
LOC: EDUNIT# → F2W 21:05
PROVIDERS: ADMIT Internal Medicine; ATTEND Internal Medicine
DX: I13.0 Hypertensive heart and chronic kidney disease with heart failure and stage 1 through stage 4 chronic kidney disease, or unspecified chronic kidney disease (principal); I50.23 Acute on chronic systolic (congestive) heart failure; N18.3 Chronic kidney disease, stage 3 (moderate); N17.9 Acute kidney failure, unspecified; N39.0 Urinary tract infection, site not specified; N40.1 Benign prostatic hyperplasia with lower urinary tract symptoms; R33.8 Other retention of urine; E03.9 Hypothyroidism, unspecified; J44.9 Chronic obstructive pulmonary disease, unspecified; D63.1 Anemia in chronic kidney disease; I48.91 Unspecified atrial fibrillation; N25.81 Secondary hyperparathyroidism of renal origin; Z95.810 Presence of automatic (implantable) cardiac defibrillator; Z79.01 Long term (current) use of anticoagulants; Z87.891 Personal history of nicotine dependence
CPT/HCPCS: 97116-GP; 97161-GP; 97165-GO; 97530-GP; 97535-GO; G8978-GP-CK; G8979-GP-CI; G8987-GO-CK; G8988-GO-CI; J0696; J1940

== ENCOUNTER 2017-09-03 07:19 | Emergency (ER) | payer OTHER ==
--- NOTE | 2017-09-03 07:25 | EDPHY ---
H & P Time Seen by Provider: 09/03/17 07:24 HPI/ROS: CHIEF COMPLAINT: Pulled out Cronin catheter HISTORY OF PRESENT ILLNESS: 87-year-old man with a previous medical history of benign prostatic hypertrophy and a Cronin catheter apparently pulled out last night and EMS was called because he was bleeding from his penis. According to EMS he is on warfarin, although I do not have a medication list to confirm that. Discussed with [facility] at 732 has note from yesterday in chart urinary retention with cronin catheter placed in clinic yesterday for residual volume, PVR 399. Has in the past been on coumadin for atrial fibrillation. Not clear if he is currently. REVIEW OF SYSTEMS: Eye: no change in vision ENT: no sore throat Cardiac: no chest pain or syncope Pulmonary: no cough or SOB Abdomen: no vomiting, diarrhea, abdominal pain Musculoskeletal: no back pain Skin: no rash Neuro: no headache Constitutional: no fever : hpi A comprehensive 10 point review of systems is otherwise negative aside from elements mentioned in the history of present illness. PAST MEDICAL HISTORY: History and physical by Dr. Orlando dated 11/21/2016 personally reviewed includes CHF, renal disease, hypothyroid, COPD, BPH. Appendectomy and thyroid and parathyroidectomy. Hypertension. Pacemaker. Social history: [facility], primary care is [facility] Appearance: Alert and conversant, cooperative. Eyes: No scleral icterus. ENT, Mouth: Normal mucous membranes. Respiratory: Normal respiratory effort, breath sounds equal, lungs are clear to auscultation. Cardiovascular: Regular rate and rhythm. Gastrointestinal: Abdomen is soft and non tender. Neurological: Alert, face symmetric, normal motor and sensory in extremities. Skin: red irritated around groin bilateral, satellite lesions, not hot to touch : mery blood at urethral meatus. Musculoskeletal: No peripheral edema. Psychiatric: Not agitated. Emergency Department course/MDM: 819: Cronin in, draining pink urine, not grossly bloody. Creatinine noted at 1.9 which is around baseline with INR 1.23. 830: Medication list reviewed from [facility] does not have warfarin or Coumadin or other anticoagulants except for aspirin. Reasonable to discharge the patient with his Cronin back in place as he does not have gross hematuria in the catheter bag, and I think the chance of him clotting off his catheter at this time is low. INR of 1.23 does not likely require any acute intervention. Patient does not have symptoms of urinary tract infection, abnormal urinalysis likely due to hematuria from trauma from pulling his catheter out, culture sent but no antibiotics at this time. Smoking Status: Former smoker Constitutional: Initial Vital Signs Temperature (C) 37 C 09/03/17 07:25 Heart Rate 70 09/03/17 07:25 Respiratory Rate 18 09/03/17 07:25 Blood Pressure 129/73 H 09/03/17 07:25 O2 Sat (%) 91 L 09/03/17 07:25 O2 Delivery Mode Room Air Allergies/Adverse Reactions: amoxicillin [From Augmentin] Allergy (Verified 09/03/17 08:02) amoxicillin trihydrate [From Augmentin] Allergy (Verified 09/03/17 08:02) clavulanic acid [From Augmentin] Allergy (Verified 09/03/17 08:02) potassium clavulanate [From Augmentin] Allergy (Verified 09/03/17 08:02) Home Medications: Medication Instructions Recorded Omeprazole [Prilosec 20 mg] 20 mg PO DAILY06 04/09/12 Tamsulosin HCl [Flomax 0.4 MG (*)] 0.4 mg PO HS 04/09/12 Calcitriol [Calcitriol (*)] 0.25 mcg PO DAILY 11/21/16 Carvedilol [Coreg] 6.25 mg PO BIDMEAL 11/21/16 Finasteride [Proscar 5 MG (*)] 5 mg PO DAILY 11/21/16 Furosemide [Lasix 20 MG (*)] 20 mg PO DAILY 11/21/16 Levothyroxine [Synthroid 88 mcg 88 mcg PO DAILY06 11/21/16 (*)] Losartan Potassium [Cozaar 25 mg 12.5 mg PO DAILY 11/21/16 (*)] Sodium Bicarbonate [Na Bicarb] 1,300 mg PO DAILY 11/21/16 Cephalexin 500 mg PO TID #21 capsule 11/24/16 Aspirin 09/03/17 Calatrol 09/03/17 Finasteride 09/03/17 Lasix 09/03/17 Levothyroxine 09/03/17 Losartan Potassium 09/03/17 Metoprolol Succinate 09/03/17 Omeprazole 09/03/17 Potassium Chloride 09/03/17 Tamsulosin HCl 09/03/17 Medical Decision Making - Data Points Laboratory Results: Laboratory Results 09/03/17 08:00 09/03/17 08:00 09/03/17 09/03/17 09/03/17 08:00 08:00 08:00 WBC RBC Hgb Hct MCV MCH MCHC RDW Plt Count MPV Neut % (Auto) Lymph % (Auto) [place] % (Auto) Eos % (Auto) Baso % (Auto) Nucleat RBC Rel Count Absolute Neuts (auto) Absolute Lymphs (auto) Absolute Monos (auto) Absolute Eos (auto) Absolute Basos (auto) Absolute Nucleated RBC Immature Gran % Immature Gran # PT 15.7 SEC H SEC (12.0-15.0) INR 1.23 H (0.83-1.16) Sodium 142 mEq/L mEq/L (135-145) Potassium 4.3 mEq/L mEq/L (3.3-5.0) Chloride 106 mEq/L mEq/L (97-110) Carbon Dioxide 22 mEq/l mEq/l (22-31) Anion Gap 14 mEq/L mEq/L (8-16) BUN 39 mg/dL H mg/dL (7-23) Creatinine 1.9 mg/dL H mg/dL (0.7-1.3) Estimated GFR 34 Glucose 113 mg/dL H mg/dL (70-100) Calcium 9.6 mg/dL mg/dL (8.5-10.4) Urine Color RED Urine Appearance MODERATELY TURBID Urine pH 6.0 (5.0-7.5) Ur Specific Kirvin 1.018 (1.002-1.030) Urine Protein 2+ H (NEGATIVE) Urine Ketones NEGATIVE (NEGATIVE) Urine Blood 3+ H (NEGATIVE) Urine Nitrate NEGATIVE (NEGATIVE) Urine Bilirubin NEGATIVE (NEGATIVE) Urine Urobilinogen 2.0 EU H EU (0.2-1.0) Ur Leukocyte Esterase TRACE H (NEGATIVE) Urine RBC 50-182 /hpf H /hpf (0-3) Urine WBC 50-182 /hpf H /hpf (0-3) Ur Epithelial Cells NONE SEEN /lpf /lpf (NONE-1+) Urine Glucose NEGATIVE (NEGATIVE) 09/03/17 08:00 WBC 11.90 10^3/uL H 10^3/uL (3.80-9.50) RBC 4.76 10^6/uL 10^6/uL (4.40-6.38) Hgb 14.4 g/dL g/dL (13.7-17.5) Hct 43.9 % % (40.0-51.0) MCV 92.2 fL fL (81.5-99.8) MCH 30.3 pg pg (27.9-34.1) MCHC 32.8 g/dL g/dL (32.4-36.7) RDW 13.9 % % (11.5-15.2) Plt Count 197 10^3/uL 10^3/uL (150-400) MPV 9.6 fL fL (8.7-11.7) Neut % (Auto) 78.9 % H % (39.3-74.2) Lymph % (Auto) 9.6 % L % (15.0-45.0) Denver % (Auto) 7.8 % % (4.5-13.0) Eos % (Auto) 2.7 % % (0.6-7.6) Baso % (Auto) 0.5 % % (0.3-1.7) Nucleat RBC Rel Count 0.0 % % (0.0-0.2) Absolute Neuts (auto) 9.39 10^3/uL H 10^3/uL (1.70-6.50) Absolute Lymphs (auto) 1.14 10^3/uL 10^3/uL (1.00-3.00) Absolute Monos (auto) 0.93 10^3/uL H 10^3/uL (0.30-0.80) Absolute Eos (auto) 0.32 10^3/uL 10^3/uL (0.03-0.40) Absolute Basos (auto) 0.06 10^3/uL 10^3/uL (0.02-0.10) Absolute Nucleated RBC 0.00 10^3/uL 10^3/uL (0-0.01) Immature Gran % 0.5 % % (0.0-1.1) Immature Gran # 0.06 10^3/uL 10^3/uL (0.00-0.10) PT INR Sodium Potassium Chloride Carbon Dioxide Anion Gap BUN Creatinine Estimated GFR Glucose Calcium Urine Color Urine Appearance Urine pH Ur Specific Kirvin Urine Protein Urine Ketones Urine Blood Urine Nitrate Urine Bilirubin Urine Urobilinogen Ur Leukocyte Esterase Urine RBC Urine WBC Ur Epithelial Cells Urine Glucose Medications Given: Discontinued Medications Lidocaine (Uroject Lidocaine 2% Jelly) 20 ml UR EDNOW ONE Stop: 09/03/17 07:40 Last Admin: 09/03/17 08:02 Dose: 20 ml Departure - Departure Disposition: Home, Routine, Self-Care Clinical Impression: Hematuria Qualifiers: Hematuria type: gross Qualified Code(s): R31.0 - Gross hematuria Condition: Good Instructions: Cronin Catheter Placement and Care (ED) Additional Instructions: Please leave catheter in place and follow up at [facility] as scheduled. Referrals: [facility] ,. [Edm Groups for Call Sched] - As per Instructions
[2017-09-03] MEDS ORDERED: LIDOCAINE 2% JELLY 20 ML (UROJECT) UR ONE (07:39)
[2017-09-03 08:07] LABS: PLATELET COUNT 197 10^3/uL (150-400)
[2017-09-03 08:13] LABS: INR 1.23 (0.83-1.16); PROTIME(PATIENT) 15.7 SEC (12.0-15.0)
[2017-09-03 09:06] VITALS: BP 132/76
== END 2017-09-03 09:11 | disposition home or self-care (01) ==
LOC: EDUNIT#
PROC: 0T9B70Z Drainage of Bladder with Drainage Device, Via Natural or Artificial Opening (ICD-10-PCS; principal; 2017-09-03)
DX: R31.0 Gross hematuria (principal); J44.9 Chronic obstructive pulmonary disease, unspecified; I11.0 Hypertensive heart disease with heart failure; I50.9 Heart failure, unspecified; Z79.01 Long term (current) use of anticoagulants; Z87.891 Personal history of nicotine dependence; Z95.0 Presence of cardiac pacemaker; Y73.2 Prosthetic and other implants, materials and accessory gastroenterology and urology devices associated with adverse incidents

== ENCOUNTER 2017-09-05 13:50 | Emergency (ER) | payer OTHER ==
--- NOTE | 2017-09-05 13:56 | EDPHY ---
H & P Time Seen by Provider: 09/05/17 13:51 HPI/ROS: CHIEF COMPLAINT: The Vail catheter complication HISTORY OF PRESENT ILLNESS: Patient is an 87-year-old man history of dementia and BPH in AFib on Coumadin. He headache catheter placed about a week ago for residual retention. He pulled that out a few days later and was seen here 2 days ago and had replaced. It it is currently in place however the patient reports that the bag "came apart". The Vail catheter is now currently clamped at his leg. He also has some bleeding from around the catheter. He denies any known trauma. No fevers. REVIEW OF SYSTEMS: Constitutional: denies: chills, fever, recent illness, recent injury EENTM: denies: blurred vision, double vision, nose congestion Respiratory: denies: cough, shortness of breath Cardiac: denies: chest pain, irregular heart rate, lightheadedness, palpitations Gastrointestinal/Abdominal: denies: abdominal pain, diarrhea, nausea, vomiting, blood streaked stools Genitourinary: See HPI Musculoskeletal: denies: joint pain, muscle pain Skin: denies: lesions, rash, jaundice, bruising Neurological: denies: headache, numbness, paresthesia, tingling, dizziness, weakness Hematologic/Lymphatic: denies: blood clots, easy bleeding, easy bruising Immunologic/allergic: denies: HIV/AIDS, transplant EXAM: GENERAL: Well-appearing, well-nourished and in no acute distress. HEAD: Atraumatic, normocephalic. EYES: Pupils equal round and reactive to light, extraocular movements intact, sclera anicteric, conjunctiva are normal. ENT: TMs normal, nares patent, oropharynx clear without exudates. Moist mucous membranes. NECK: Normal range of motion, supple without lymphadenopathy or JVD. LUNGS: Breath sounds clear to auscultation bilaterally and equal. No wheezes rales or rhonchi. HEART: Regular rate and rhythm without murmurs, rubs or gallops. ABDOMEN: Soft, nontender, normoactive bowel sounds. No guarding, no rebound. No masses appreciated. BACK: No CVA tenderness, no spinal tenderness, step-offs or deformities EXTREMITIES: Normal range of motion, no pitting or edema. No clubbing or cyanosis. NEUROLOGICAL: Cranial nerves II through XII grossly intact. Normal speech, normal gait. 5/5 strength, normal movement in all extremities, normal sensation PSYCH: Normal mood, normal affect. SKIN: Warm, dry, normal turgor, no visible rashes or lesions. Source: Patient Exam Limitations: No limitations - Personal History Tetanus Vaccine Date: less than 10 years - Medical/Surgical History Hx Asthma: No Hx Chronic Respiratory Disease: No Hx Diabetes: No Hx Cardiac Disease: Yes Hx Renal Disease: Yes Hx Cirrhosis: No Hx Alcoholism: No Hx HIV/AIDS: No Hx Splenectomy or Spleen Trauma: No Other PMH: Atrial fibrillation, BPH, bladder stones, HTN, AAA, hyperparathyroidism, skin CA, malignant lymphoma in remission, CKD, pacemaker for bradycardia, anemia - Family History Significant Family History: No pertinent family hx - Social History Smoking Status: Former smoker Alcohol Use: Sober Constitutional: Initial Vital Signs Temperature (C) 37.1 C 09/05/17 13:51 Heart Rate 64 09/05/17 13:51 Respiratory Rate 16 09/05/17 13:51 Blood Pressure 128/76 H 09/05/17 13:51 O2 Sat (%) 92 09/05/17 13:51 O2 Delivery Mode Room Air Allergies/Adverse Reactions: amoxicillin [From Augmentin] Allergy (Verified 09/05/17 14:11) amoxicillin trihydrate [From Augmentin] Allergy (Verified 09/05/17 14:11) clavulanic acid [From Augmentin] Allergy (Verified 09/05/17 14:11) potassium clavulanate [From Augmentin] Allergy (Verified 09/05/17 14:11) Home Medications: Medication Instructions Recorded Omeprazole [Prilosec 20 mg] 20 mg PO DAILY06 04/09/12 Tamsulosin HCl [Flomax 0.4 MG (*)] 0.4 mg PO HS 04/09/12 Calcitriol [Calcitriol (*)] 0.25 mcg PO DAILY 11/21/16 Carvedilol [Coreg] 6.25 mg PO BIDMEAL 11/21/16 Finasteride [Proscar 5 MG (*)] 5 mg PO DAILY 11/21/16 Furosemide [Lasix 20 MG (*)] 20 mg PO DAILY 11/21/16 Levothyroxine [Synthroid 88 mcg 88 mcg PO DAILY06 11/21/16 (*)] Losartan Potassium [Cozaar 25 mg 12.5 mg PO DAILY 11/21/16 (*)] Sodium Bicarbonate [Na Bicarb] 1,300 mg PO DAILY 11/21/16 Cephalexin 500 mg PO TID #21 capsule 11/24/16 Aspirin 09/03/17 Calatrol 09/03/17 Finasteride 09/03/17 Lasix 09/03/17 Levothyroxine 09/03/17 Losartan Potassium 09/03/17 Metoprolol Succinate 09/03/17 Omeprazole 09/03/17 Potassium Chloride 09/03/17 Tamsulosin HCl 09/03/17 Medical Decision Making ED Course/Re-evaluation: The patient's Vail catheter was successfully irrigated. The urine itself is nonbloody. It is draining well. Encouraged the patient not to talk on his catheter. We will discharge him back to the assisted. He will follow up with [facility] as previously planned. Differential Diagnosis: Partial list of the Differential diagnosis considered include but were not limited to; Vail catheter complication, hematuria and although unlikely based on the history and physical exam, I also considered urinary tract infection, rupture. I discussed these differential diagnoses and the plan with the patient as well as the usual and expected course. The patient understands that the diagnosis is provisional and that in medicine we are not always correct and that further workup is often warranted. Usual and customary warnings were given. All of the patient's questions were answered. The patient was instructed to return to the emergency department should the symptoms at all worsen or return, otherwise to followup with the physician as we discussed. Departure - Departure Disposition: Home, Routine, Self-Care Clinical Impression: Vail catheter problem Qualifiers: Encounter type: subsequent encounter Qualified Code(s): T83.9XXD - Unspecified complication of genitourinary prosthetic device, implant and graft, subsequent encounter Condition: Fair Instructions: Vail Catheter Placement and Care (ED) Referrals: Patient,NotPresent [Unknown] - As per Instructions
[2017-09-05 15:18] VITALS: BP 101/71
--- NOTE | 2017-09-05 16:36 | ASMTCMCOM ---
CM Note CM Note Notes: Pt presented to the ED via EMS from [facility] ([phone]) for indwelling cronin catheter problems. Requested to assist w/getting pt back home. This CM called [facility] and left a voicemail. Spoke w/ pt and he requested we call his son-in-law, Fidencio Mohr ([phone]) to see if he could come pick him up. Spoke with Fidencio and he was already on his way. Pt discharged home via transport w/Fidencio. CM available for further assistance if needed. Date Signed: 09/05/2017 04:36 PM Electronically Signed By:Linda Swanson RN
--- NOTE | 2017-09-05 16:39 | ASDISCHSUM ---
Discharge Information Plan Status:Assisted Living Medically Cleared to Leave: Discharge Date:09/05/2017 03:19 PM CM D/C Disposition:Assisted Living ADT D/C Disposition:Home, Routine, Self-Care Projected Discharge Date:09/05/2017 03:19 PM Transportation at D/C:Family Discharge Delay Reason: Follow-Up Date:09/05/2017 03:19 PM Discharge Slot: Final Diagnosis: Placement Information Patient Contact Information Contact Name:JHONNY Relationship: Address:[address] [place] Alternate Phone: [facility]/Zip Code:[place] [address] Email: Financial Information Financial Class:Medicare Advantage Plans Primary Plan Desc:ADA MEDICARE ADVANTAGE OUTPAT Primary Plan Number:[id number] Secondary Plan Desc: Secondary Plan Number: Assessment Information [facility] CM Progress Note CM Note CM Note Notes: Pt presented to the ED via EMS from [facility] ([phone]) for indwelling cronin catheter problems. Requested to assist w/getting pt back home. This CM called [facility] and left a voicemail. Spoke w/ pt and he requested we call his son-in-law, Fidencio Mohr ([phone]) to see if he could come pick him up. Spoke with Fidencio and he was already on his way. Pt discharged home via transport w/Fidencio. CM available for further assistance if needed. Date Signed: 09/05/2017 04:36 PM Electronically Signed By:Linda wSanson RN Intervention Information Intervention Type:Transportation Date of Service:09/05/2017 04:37 PM Patient Type:Emergency Room Staff Member:DULCE Swanson [place] Hours:0.25 Discipline:Education Department Registrar Severity: Comment:
== END 2017-09-05 15:19 | disposition home or self-care (01) ==
LOC: EDUNIT#
DX: T83.9XXD Unspecified complication of genitourinary prosthetic device, implant and graft, subsequent encounter (principal); I12.9 Hypertensive chronic kidney disease with stage 1 through stage 4 chronic kidney disease, or unspecified chronic kidney disease; N18.9 Chronic kidney disease, unspecified; Z79.82 Long term (current) use of aspirin; Z85.828 Personal history of other malignant neoplasm of skin; Z87.891 Personal history of nicotine dependence; Z95.0 Presence of cardiac pacemaker; Y73.2 Prosthetic and other implants, materials and accessory gastroenterology and urology devices associated with adverse incidents